=== PATIENT | female | born 1950 | race Caucasian/White ===

== ENCOUNTER 2017-08-14 03:50 | Observation (INO) | payer MEDICARE ==
--- NOTE | 2017-08-12 10:20 | EKG ---
FACILITY: [facility] PATIENT NAME: MARYANN ABRAHAM : [id number] MR: [id number] V: [id number] EXAM DATE: ORDERING PHYSICIAN: ELSA GONZALES TECHNOLOGIST: Russel Howard Reason : PREOP Blood Pressure : / mmHG Vent. Rate : 068 BPM Atrial Rate : 068 BPM P-R Int : 160 ms QRS Dur : 088 ms QT Int : 390 ms P-R-T Axes : 047 034 022 degrees QTc Int : 414 ms Normal sinus rhythm Possible Left atrial enlargement Nonspecific ST and T wave abnormality Abnormal ECG No previous ECGs available Confirmed by RAJEEV DORANTES ([id number]) on 08/12/2017 3:13:13 PM Referred By: ANDREI ECHEVERRIA Confirmed By:RAJEEV DORANTES
[2017-08-14] VITALS (15 sets, daily range): BP systolic 109–149; BP diastolic 57–100
[~2017-08-14] VITALS: Ht 170.2 cm; Wt 130.2 kg
[~2017-08-14 03:50] MED LIST: ALLO-2 PO; AZEL137S NS; CALC-852 PO; CALC500T6 PO; FISH1200 PO; FLUT16SP19 NS; KRIL500C2 PO; LEVO-3 PO; MAGN27TA6 PO; MAX75 PO; MULT1CAP59 PO; VITA100T4 PO
[2017-08-14 06:17] LABS: PLATELET COUNT, AUTOMATED 186 K/uL (150-450)
[2017-08-14] MEDS ORDERED: PHENAZOPYRIDINE 200 MG TAB PO ONE (06:30)
[2017-08-14] MEDS ORDERED: LIDOCAINE/SOD BICARB 8.4% SYR ID ONE (06:30)
[2017-08-14] MEDS ORDERED: cefOXitin/DEX(*) 2GM/50ML PREM 50 ML IVPB ONE (06:30)
[2017-08-14] MEDS ORDERED: MIDAZOLAM 2 MG/2 ML VIAL IVP PRN (06:30)
[2017-08-14] MEDS ORDERED: NORMOSOL R SOLN(*) 1000 ML BAG 1,000 ML IV PRN (06:30)
[2017-08-14] MEDS ORDERED: FAMOTIDINE 20 MG TAB PO ONE (06:30)
[2017-08-14] MEDS ORDERED: ROPIVACAINE 0.2% 20 ML VIAL ONE (06:53)
[2017-08-14] MEDS ORDERED: NS(*) 0.9% 10 ML VIAL 10 ML ONE (06:53)
[2017-08-14] MEDS ORDERED: VASOPRESSIN 20 UNIT/ML VIAL ONE ×2 (06:53→06:54)
[2017-08-14] MEDS ORDERED: NS(*) 0.9% 100 ML BAG 100 ML ONE (06:59)
[2017-08-14] MEDS ORDERED: fentaNYL CITR 100 MCG/2 ML AMP ONE ×4 (07:19→12:45)
[2017-08-14] MEDS ORDERED: NS 0.9% IRRIGATION 1000ML PLCT IR ONE (08:20)
[2017-08-14] MEDS ORDERED: SUGAMMADEX SOD 500 MG/5 ML SDV ONE (10:39)
[2017-08-14] MEDS ORDERED: PROMETHAZINE 25 MG/ML 1 ML AMP IVP PRN (10:55)
[2017-08-14] MEDS ORDERED: KETOROLAC 30 MG/ML VIAL IVP SCH ×2 (10:55→12:15)
[2017-08-14] MEDS ORDERED: ZOLPIDEM TARTRATE 10 MG TAB PO PRN (10:55)
[2017-08-14] MEDS ORDERED: SIMETHICONE 80 MG CHEW CHEW PRN (10:55)
[2017-08-14] MEDS ORDERED: ACETAMINOPHEN 325 MG TAB PO PRN (10:55)
[2017-08-14] MEDS ORDERED: ONDANSETRON 4 MG/2 ML VIAL IV PRN (10:55)
--- NOTE | 2017-08-14 11:11 | Post Operative Note ---
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
[2017-08-14] MEDS ORDERED: MEPERIDINE 50 MG/ML SYR ONE (11:23)
[2017-08-14] MEDS ORDERED: FLUORESCEIN SOD 1 MG 1 EA STRP ONE (12:58)
[2017-08-14] MEDS ORDERED: PROPARACAINE 0.5% OP 15ML BTL ONE (12:58)
[2017-08-14] MEDS ORDERED: ERYTHROMYCIN OP OINT 5MG/GM TU OP SCH (13:30)
[2017-08-14] MEDS: DLR(*) 1000 ML BAG 1,000 ML IV PRN ×2 (14:03→21:59)
[2017-08-14] MEDS: ERYTHROMYCIN OP OINT 5MG/GM TU OP SCH ×3 (14:04→20:53)
--- NOTE | 2017-08-14 15:56 | OPERATIVE REPORT 1 ---
EVENT DATE: August 14, 2017 SURGEON: Roberto Nelson MD ANESTHESIOLOGIST: Jimmy Woodward MD ANESTHESIA: General endotracheal. LEAD GAME DESIGNER: Anastacio Da Silva DO PREOPERATIVE DIAGNOSES 1. Endometrial hyperplasia. 2. Postmenopausal bleeding. POSTOPERATIVE DIAGNOSES 1. Endometrial hyperplasia. 2. Postmenopausal bleeding. PROCEDURES PERFORMED 1. Laparoscopic-assisted vaginal hysterectomy. 2. Bilateral salpingo-oophorectomy. 3. Diagnostic cystoscopy. ESTIMATED BLOOD LOSS 200 mL FLUIDS Crystalloid 1400 mL IV. FINDINGS Enlarged uterus with obvious intramural fibroids, one emanating from the left cornual region and another from within the body of the uterus. Normal- appearing ovaries and tubes bilaterally. Adhesions on the left pelvic brim around the infundibulopelvic ligament on that side. Normal bladder and excellent ureteral jets observed from both ureteral orifices upon completion of the procedure. PROCEDURE IN DETAIL The patient was brought to the operating room and placed under general endotracheal anesthesia in the dorsal supine position by Dr. Woodward. She was then moved to the dorsal lithotomy position and prepped and draped in the usual sterile fashion. A weighted speculum was placed in the vagina. The cervix was deep within the pelvis, and there was a significant obesity issue as far as exposure vaginally; however, the cervix was ultimately grasped and put on stretch. It was sounded to a depth of 9 cm. A size 8 JULIÁN uterine manipulator was selected. The cervix was dilated to accommodate. It was passed through the cervix into the uterus. The bulb was inflated and secured, and all other instruments were then removed. The legs were brought back to the supine position. A Lizama catheter was placed. Gloves were changed. The umbilicus was then infiltrated with 0.2% Naropin. A 5 mm stab incision was made. A Veress needle was passed through this incision into the abdomen while stabilizing the anterior abdominal wall. A pneumoperitoneum was created to an intra-abdominal pressure of 20 mmHg. Two additional ports 5 mm size were placed in the right and left lower quadrants similar technique, and the pressure was reduced to 15 mmHg. The abdomen and pelvis were surveyed with the above findings noted. The patient was moved to the Trendelenburg position. Initially, the right fallopian tube was put on medial stretch, exposing the infundibulopelvic ligament, which was cauterized and transected with a Gyrus device. It was followed along its pelvic connection to the round ligament, which was cauterized and transected. Attention was then turned to the left side. There were adhesions of the rectal colon to the left pelvic sidewall and overlapping and overlying the infundibulopelvic ligament on this side. We had to do adhesiolysis in this location in order to adequately expose the infundibulopelvic ligament which was still tightly adhered to the left pelvic sidewall. Ultimately, I was able to dissect the ovary away from this area and cauterize any bleeding in that location. I followed it along its pelvic connection to the round ligament which was cauterized and transected. Again, we inspected the IP ligament, and it was hemostatic; therefore, we continued to proceed with the case. The broad ligament was into anterior and posterior leaflets, and the bladder reflection was created with the anterior leaflet and pushing the bladder down away from the cervix. Posteriorly, we dissected the peritoneum away from the uterine vasculature, exposing the vessels. These were cauterized and taken down as far as we could to the internal os location of the cervix. On the right side, we completed the bladder reflection on the anterior leaflet of the broad ligament, skeletonized the vessels on this side and cauterized as well, and took down the vessels to the internal os location. At this point, the pneumoperitoneum was released. All instruments were secured to the patient's abdomen and covered with a sterile drape. The legs were brought back to the lithotomy position, and we proceeded vaginally. As mentioned, morbid obesity made this portion of the procedure very difficult, creating an extremely long vaginal length, having difficulty keeping the self-retaining retractors in place. However, we were ultimately able to secure the cervix circumferentially, inject it with a diluted Pitressin solution, and make a circumferential incision with the Bovie. The posterior fourchette of the vagina was put on stretch, and the posterior cul-de-sac was entered sharply. The long-billed weighted speculum was inserted here, exposing the uterosacral ligaments. These were bilaterally clamped, cut, suture ligated with Vicryl suture type, and tagged for later identification. Attention was then turned to the anterior dissection, dissecting the anterior vagina and bladder away from the cervix until we had gained entry anteriorly. A right-angle retractor was inserted here, retracting the bladder well away from the operative area. This exposed the cardinal ligaments which were bilaterally clamped, cut, and suture ligated with Vicryl suture type. This was posing extremely difficult in order to get exposure, and on the right side, the vascular pedicle slipped out of the clamp in attempts to adequately expose and secure a suture. A suture was placed in this location, and the vascular vessels were reclamped and suture ligated again, securing the bleeding in that location. The remaining vascular pedicle, however, was so deep within the pelvis that I could not adequately expose and place a clamp. Therefore, after much attempt at doing this, we decided to try to complete the procedure laparoscopically. The instruments were secured. The uterine manipulator was replaced into the uterus, and a gloved towel was then placed in the vagina around this area to secure the pneumoperitoneum. The legs were brought back to the supine position. Gloves were changed again, and we set up again laparoscopically. Reinsufflating the abdomen and using the uterine manipulator , the uterus was elevated out of the pelvis, the bowel was moved away in the Trendelenburg position, and deviating the uterus laterally, we were able to expose the remaining left vascular pedicle which was taken down with the Gyrus device. The remaining posterior dissection completed the dissection which freed the cervix up laparoscopically. The same procedure was followed on the contralateral side, isolating some uterine vessels in that location, cauterizing , and transecting these vessels which ultimately freed the uterus up entirely. It was pushed back down into the vagina to secure the pneumoperitoneum, and once adequate exposure had been obtained, some bleeders on the vascular pedicle on the right were isolated and cauterized. The pelvis was then irrigated and suctioned dry. There was no visible excessive bleeding at this point, so the pneumoperitoneum was released, and instruments were again resecured to the patient's abdomen. Legs were brought back to the lithotomy position, and then we proceeded again vaginally, removing the specimen and sending it to Pathology. The remaining uterosacral ligaments were secured to the ipsilateral vaginal mucosa with a modified Valle culdoplasty stitch on both sides. The uterosacral ligaments were tied in the midline. The vaginal cuff was repaired using a 2-0 Vicryl in a running locking stitch. Upon completion, the Lizama catheter was removed, and diagnostic cystoscopy was performed. Both ureteral orifices were observed to efflux Pyridium-stained urine with an excellent jet, and there were no visible bladder injuries. Therefore, the procedure was terminated vaginally. The legs were brought back to the supine position, gloves were changed, and we proceeded again laparoscopically, reinsufflating the abdomen and inspecting the operative results intra-abdominally. The pelvis was then irrigated after adequate exposure had been obtained and suctioned dry. A few bleeders along the right vascular pedicle were again isolated and cauterized. Both IP ligament pedicles were again inspected and found to be hemostatic. Copious irrigation was used to visualize all vascular pedicles, and there was excellent hemostasis. There were some capillary bleeders on the bladder reflection which were cauterized. Upon completion, there was no visible bleeding, and the vagina was supported at the uterosacral ligaments. The pneumoperitoneum was then released and suctioned out. All instruments were removed from the abdomen. The skin incisions were repaired with 4-0 Monocryl simple subdermal and covered with Dermabond skin adhesive. She tolerated the procedure well. Sponge, lap, needle, and instrument counts were all correct times three. TRISTON
[2017-08-14] MEDS ORDERED: IBUPROFEN 800 MG TAB PO PRN (17:00)
[2017-08-14] MEDS: DOCUSATE CALCIUM 240 MG CAP PO SCH (20:52)
[2017-08-14] MEDS: FAMOTIDINE 20 MG TAB PO SCH (20:52)
[2017-08-15 01:30] VITALS: BP 101/63
[2017-08-15 05:50] VITALS: BP 91/65
[2017-08-15 06:13] LABS: PLATELET COUNT, AUTOMATED 160 K/uL (150-450)
[2017-08-15] MEDS ORDERED: LEVOTHYROXINE SOD 0.1 MG TAB PO ONE (07:00)
[2017-08-15] MEDS ORDERED: TRIAMTERENE/HCTZ 75-50MG TAB PO ONE (07:00)
[2017-08-15] MEDS ORDERED: ALLOPURINOL 300 MG TAB PO ONE (07:00)
[2017-08-15 07:45] VITALS: BP 96/65
[2017-08-15] MEDS ORDERED: INFLUENZA VIRUS VAC 0.5 ML SYR IM ONLY ONE (09:00)
[2017-08-15] MEDS: DOCUSATE CALCIUM 240 MG CAP PO SCH (09:27)
[2017-08-15] MEDS: ERYTHROMYCIN OP OINT 5MG/GM TU OP SCH (09:27)
[2017-08-15] MEDS: FAMOTIDINE 20 MG TAB PO SCH (09:27)
--- NOTE | 2017-08-15 13:06 | OB/GYN Progress Note ---
OB Subjective Progress Notes Subjective Doing very well. Pain well controlled and ambulating. Voiding spontaneous and well. No nausea. Eye abrasion feels much better today. OB Objective Physical Exam Vital Signs Date Time Temp Pulse Resp B/P (MAP) Pulse Ox O2 Delivery O2 Flow Rate FiO2 08/15/17 09:37 89 08/15/17 07:45 98.1 67 16 96/65 (75) Nasal Cannula 0.5 Intake and Output 08/16/17 07:00 Output Total 450 ml Balance -450 ml Output Urine Total 450 ml # Bowel Movements 1 General Appearance: Alert/Awake/No Acute Distress Neurological: No Gross deficits Cardiovascular: Normal Rhythm & Peripheral Pulses, Regular Rate and Rhythm Respiratory: No Respiratory Distress, Clear to Auscultation Abdomen: Soft, Non-Tender, Non-Distended Incision: Clean, Dry, Intact Extremities: No Cyanosis,Clubbing or Edema, Warm Integumentary: Skin Intact without Lesions or Rash Psychological: Alert & Oriented X3, Appropriate Mood & Affect Result Diagram: 08/15/17 0545 08/14/17 0610 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 F/U in 2 weeks. ANDREI LUX MD Aug 15, 2017 13:06
[2017-08-15] MEDS ORDERED: IBUP800T37 PO (13:07)
[2017-08-15] MEDS ORDERED: PER PO (13:07)
[2017-08-15 13:08] VITALS: Ht 170.2 cm; Wt 130.2 kg
--- NOTE | 2017-08-15 13:09 | Short(Outpt) Discharge Summary ---
Discharge Summary Reason for Hosp/Final Diag: (1) Status post laparoscopic hysterectomy Hospital Course & Plan: Reviewed in detail all postop instructions. F/U in 2 weeks. Departure Discharge to: Home, Self Care Discharge Instructions Home Meds Active Scripts Oxycodone/Acetaminophen (OXYCODONE/ACETAMINOPHEN 5MG/325 MG) 5 Mg/325 Mg Tab, 1- 2 TAB PO Q4H Y for PAIN, #20 TAB 0 Refills Prov:ROBERTO NELSON MD 08/15/17 Reported Medications Fish Oil/Borage/Flax/Om3,6,9#1 ([place] 3-6-9 1,200 mg Softgel) 1,200 Mg Capsule, 1 TAB PO QDAY 08/10/17 Calcium Carbonate/Vitamin D3 (CALCIUM + VITAMIN D TABLET) 1 Each Tablet, 1 EACH PO QDAY 08/10/17 Vitamin E Mixed (VITAMIN E) Unknown Strength Tablet, PO 01/30/17 Levothyroxine Sodium (LEVOTHYROXINE SODIUM) 100 Mcg Tablet, 100 MCG PO QDAY, TAB 01/30/17 Triamterene/Hctz (TRIAMTERENE-HCTZ 75-50 MG TAB) 1 Each Tab, 1 TAB PO DAILY, TAB 01/30/17 Allopurinol (Allopurinol) 300 Mg Tablet, 300 MG PO DAILY 01/30/17 Discontinued Reported Medications Calcium Carbonate (CALCIUM) Unknown Strength Tablet, PO 01/30/17 Krill Oil (KRILL OIL) Unknown Strength Capsule, PO, CAPSULE 01/30/17 Magnesium Amino Acid Chelate (MAGNESIUM) Unknown Strength Tablet, PO 01/30/17 Multivitamin (MULTIVITAMINS) 1 Each Capsule, 1 EACH PO QDAY, CAPSULE 01/30/17 Fluticasone Prop 50 Mcg Ns (FLONASE 50 MCG NS) 16 Gm [place].susp, 2 SPRAYS NS QDAY, BOT 01/30/17 Discontinued Scripts Azelastine Hcl (AZELASTINE HCL) 137 Mcg/0.137 Ml [place].pump, 1 SPRAYS NS BID for 90 Days, #3 BOT 3 Refills Prov:SKIP VARGAS JR, MD 02/18/17 Follow up Referrals: [facility] In Two Weeks @ [facility] with Roberto Nelson Md Diet: Regular Activity: As Tolerated, No Heavy Lifting, No Exertion Copies to: ROBERTO NELSON MD, TRAVIS MD Aug 15, 2017 13:09
== END 2017-08-15 13:08 | disposition home or self-care (01) ==
LOC: OR 03:50 → PED 13:45
PROVIDERS: ADMIT Obstetrics & Gynecology; ATTEND Obstetrics & Gynecology
DX: N95.0 Postmenopausal bleeding (principal); N85.00 Endometrial hyperplasia, unspecified; I10 Essential (primary) hypertension; E03.9 Hypothyroidism, unspecified
CPT/HCPCS: 36415; 36416; 58552; 82948; 84443; 85014; 85018; 85025; 88307; 93005; A9270; G0378; J0694; J1885; J2175; J2250; J2795; J3010; J3490; J7050; 82310; 82374; 82435; 82565; 82947; 84132; 84295; 84520

== ENCOUNTER 2017-10-15 01:39 | Day surgery (SDC) | payer MEDICARE ==
[2017-08-15 13:08] VITALS: Ht 171.4 cm; Wt 127.0 kg
[~2017-10-15] VITALS: Ht 171.4 cm; Wt 127.0 kg
[~2017-10-15 01:39] MED LIST changes: +IBUP800T37 PO; +MAGNESIUM PO; +PER PO; +VIT1TABL8 PO
[2017-10-15] MEDS ORDERED: PROPOFOL(*)1000 MG/100 ML VIAL 100 ML ONE (11:06)
[2017-10-15 11:13] VITALS: BP 118/78
[2017-10-15] MEDS ORDERED: NORMOSOL R SOLN(*) 1000 ML BAG 1,000 ML IV PRN (11:30)
[2017-10-15] MEDS ORDERED: LIDOCAINE/SOD BICARB 8.4% SYR ID ONE (11:30)
[2017-10-15 12:43] VITALS: BP 96/61
[2017-10-15 13:00] VITALS: BP 94/69
[2017-10-15 13:18] VITALS: BP 97/72
[2017-10-15 13:19] VITALS: BP 101/67
== END 2017-10-15 13:35 | disposition home or self-care (01) ==
LOC: OR 01:39
PROVIDERS: ATTEND Family Medicine
DX: Z12.11 Encounter for screening for malignant neoplasm of colon (principal)
CPT/HCPCS: 00812; G0121; J2704

== ENCOUNTER → 2017-12-01 | Outpatient (CLI) | payer MEDICARE ==
[2017-08-15 13:08] VITALS: BMI 45.0
--- NOTE | 2017-12-02 08:35 | RADIOLOGY IMAGING REPORT ---
FACILITY: [facility] [place] PATIENT NAME: MARYANN ABRAHAM : [id number] MR: [id number] V: [id number] EXAM DATE: ORDERING PHYSICIAN: DIANNE LERMA TECHNOLOGIST: Meli Suh PROCEDURE:BILATERAL DIGITAL SCREENING MAMMOGRAM WITH CAD ASSISTED INTERPRETATION & 3D TOMOSYNTHESIS COMPARISON:Prior mammograms 11/26/16, 07/24/16, 11/26/15, 11/09/15, 06/05/15. INDICATIONS:SCREENING FINDINGS: A small amount of fibroglandular tissue is seen throughout the breasts. The parenchymal pattern has remained stable allowing for difference in mammographic technique & patient positioning. There is no evidence of malignant appearing mass, malignant appearing calcifications or other secondary sign of malignancy in either breast. DIAGNOSTIC CATEGORY 1--NEGATIVE. RECOMMENDATIONS: ROUTINE MAMMOGRAM AND CLINICAL EVALUATION. IMPRESSION: BIRADS 1: Negative. No significant abnormality is seen. Dictated by: Lilly Wadsworth M.D. on 12/01/2017 at 16:03 Transcribed by: SHRUTHI on 12/01/2017 at 16:11 Approved by: Lilly Wadsworth M.D. on 12/02/2017 at 8:34 [facility]
== END ==
LOC: MAMO 01:17
PROVIDERS: ATTEND Obstetrics & Gynecology
DX: Z12.31 Encounter for screening mammogram for malignant neoplasm of breast (principal)
CPT/HCPCS: 77063; 77067

== ENCOUNTER → 2018-03-08 | Outpatient (CLI) | payer MEDICARE ==
[2017-08-15 13:08] VITALS: BMI 45.0
[~2018-03-08] MED LIST changes: +LEVO112T44 PO
--- NOTE | 2018-03-08 11:43 | RADIOLOGY IMAGING REPORT ---
FACILITY: [facility] [place] PATIENT NAME: Melyssa Huitron : 1950 MR: [id number] V: [id number] EXAM DATE: ORDERING PHYSICIAN: SKIP VARGAS TECHNOLOGIST: Location: [facility] Patient: Melyssa Huitron : 1950 Visit/Account:[id number] Date of Sevice: 03/08/2018 THYROID HISTORY: multinodular goiter COMPARISON: December 02, 2016 FINDINGS: SIZE: Right lobe: 4.4 x 2 x 1.6 cm Left lobe: 4 x 1.1 x 1.6 cm Isthmus: 4.6 mm PARENCHYMA: Diffusely heterogeneous NODULES: Right lobe: * There is a hypoechoic nodule in the mid to inferior right lobe measuring 1.7 x 1.3 x 1.4 cm. This appears decreased in size when compared to the prior study at which time the nodule measured 2.2 x 1 .6 x 2.1 cm. There is a 5 mm hypoechoic nodule in the medial inferior right lobe with peripheral zac cifications Left lobe: * There is a 9 mm isoechoic nodule in the mid left lobe slightly decreased in size, previously measu ring 1.1 cm Isthmus: * None discrete. VASCULARITY: Within normal limits. ADDITIONAL FINDINGS: None. IMPRESSION: Hypoechoic nodule in the mid to inferior right lobe slightly decreased in size when compared to the p rior study now measuring 1.7 cm in maximum dimension Isoechoic nodule in the mid left lobe also slightly decreased in size now measuring 9 mm REFERENCE: 2015 [place] [employer] Management Guidelines for Adult Patients with Thyroid Nodules and D ifferentiated Thyroid Cancer: The [place] [employer] Guidelines Task Force on Thyroid Nodul es and Differentiated Thyroid Cancer. SONOGRAPHIC PATTERNS: * Benign: Purely cystic nodules (no solid component); estimated risk of malignancy <1 percent; no bi opsy recommended. * Very Low Suspicion: Spongiform or partially cystic nodules without any of the sonographic features described in low, intermediate, or high suspicion patterns; estimated risk of malignancy <3 percent; consider FNA at > 2 cm (Observation without FNA is also a reasonable option). * Low Suspicion: Isoechoic or hyperechoic solid nodule, or partially cystic nodule with eccentric so lid areas, without microcalcification, irregular margin or ETE (extra-thyroidal extension), or taller than wide shape; estimated risk of malignancy 5-10 percent; recommend FNA at >1.5 cm. * Intermediate Suspicion: Hypoechoic solid nodule with smooth margins without microcalcifications, E TE (extra-thyroidal extension), or taller than wide shape; estimated risk of malignancy 10-20 percent ; recommend FNA at > 1 cm. * High Suspicion: Solid hypoechoic nodule or solid hypoechoic component of a partially cystic nodule with one or more of the following features: irregular margins (infiltrative, microlobulated), microc alcifications, taller than wide shape, rim calcifications with small extrusive soft tissue component, evidence of ETE (extra-thyroidal extension); estimated risk of malignancy >70-90 percent; recommend FNA at > 1 cm. NOTES: * Although a sonographically suspicious subcentimeter thyroid nodule without evidence of extrathyroi char extension or sonographically suspicious lymph nodes may be observed with close sonographic follow -up rather than pursuing immediate FNA, patient age and preference may modify decision-making. A > 50% interval increase in nodule volume and/or development of new suspicious sonographic features are felt to be a valid reasons for potential re-aspiration of a nodule previously shown to have benig n FNA cytology. Report Dictated By: Lilly Wadsworth MD at 03/08/2018 10:55 AM Report E-Signed By: Lilly Wadsworth MD at 03/08/2018 11:38 AM WSN:[email or web address]
== END ==
LOC: US 01:10
PROVIDERS: ATTEND Otolaryngology
DX: E04.2 Nontoxic multinodular goiter (principal)
CPT/HCPCS: 76536

== ENCOUNTER → 2018-05-05 | Outpatient (CLI) | payer MEDICARE ==
[2017-08-15 13:08] VITALS: BMI 45.0
== END ==
LOC: LAB 13:21
PROVIDERS: ATTEND Otolaryngology
DX: E03.9 Hypothyroidism, unspecified (principal); E04.2 Nontoxic multinodular goiter
CPT/HCPCS: 36415; 84443